=== PATIENT | female | born 1995 ===

== ENCOUNTER 2021-02-28 11:01 | Emergency (ER) | payer OTHER ==
[2021-02-28 11:46] VITALS: BP 103/59
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
== END 2021-02-28 13:20 | disposition home or self-care (01) ==
LOC: ED 11:01
DX: M54.5 Low back pain (principal); M25.512 Pain in left shoulder; J45.909 Unspecified asthma, uncomplicated; Z79.899 Other long term (current) drug therapy; V49.49XA Driver injured in collision with other motor vehicles in traffic accident, initial encounter; Y93.89 Activity, other specified; Y92.488 Other paved roadways as the place of occurrence of the external cause; Y99.8 Other external cause status
CPT/HCPCS: 99281